=== PATIENT | male | born 1955 | race Caucasian/White ===

== ENCOUNTER → 2017-06-06 | Outpatient (CLI) | payer BC | END | disposition home or self-care (01) | LOC: CDC 08:33 | DX: Z01.810 Encounter for preprocedural cardiovascular examination (principal); I10 Essential (primary) hypertension; S83.232A Complex tear of medial meniscus, current injury, left knee, initial encounter; M25.562 Pain in left knee; I45.10 Unspecified right bundle-branch block | CPT/HCPCS: 93000 ==